=== PATIENT | male | born 1950 | race African-American/Black ===

== ENCOUNTER 2020-12-09 18:13 | Emergency (ER) | payer OTHER ==
[~2020-12-09] VITALS: Ht 167.6 cm; Wt 86.2 kg
[2020-12-09 20:52] LABS: ABSOLUTE NEUTROPHILS 5.3 thou/uL (1.4-8.2); HEMOGLOBIN 14.9 gm/dL (14.0-18.0); MCH 29.2 pg (26.0-34.0); RDW 13.4 % (10.5-14.5)
[2020-12-09 20:54] LABS: BASOPHILS 0.8 % (0.0-2.0); EOSINOPHILS 1.1 % (0.0-3.0); HEMATOCRIT 43.6 % (42.0-52.0); LYMPHOCYTES 17.5 % (24.0-44.0); MCHC 34.1 g/dL (28.0-37.0); MCV 85.5 fL (80.0-100.0); MONOCYTES 11.5 % (1.0-8.0); PLATELET COUNT 158 thou/uL (150-400); POLYS 69.1 % (36.0-66.0); WBC 7.6 thou/uL (4.0-11.0)
[2020-12-09 21:01] LABS: ANION GAP 7 mmol/L (7-16); BUN 12 mg/dL (7-18); CALCIUM 8.9 mg/dL (8.5-10.1); CHLORIDE 107 mmol/L (98-107); CO2 29 mmol/L (21-32); CREATININE 1.2 mg/dL (0.7-1.3); GLUCOSE 105 mg/dL (74-106); POTASSIUM 4.4 mmol/L (3.5-5.1); SODIUM 143 mmol/L (136-145)
[2020-12-09 21:12] LABS: ALBUMIN 3.6 g/dL (3.4-5.0); LIPASE 160 U/L (73-393); SGOT 8 U/L (15-37); SGPT 18 U/L (30-65); TOTAL BILIRUBIN 1.3 mg/dL (0.2-1.0); TOTAL PROTEIN 7.1 g/dL (6.4-8.2); TROPONIN-I <0.06 ng/mL (<0.06)
[2020-12-10] MEDS ORDERED: ULTRAM 50MG TAB50 MG PO (01:39)
[2020-12-10] MEDS ORDERED: LIDODERM1 EACH TRANSDERM (01:39)
[2020-12-10] MEDS ORDERED: CYCLOBENZAPRINE5 MG PO (01:39)
[2020-12-10 01:55] VITALS: BP 160/96
--- NOTE | 2020-12-10 07:31 | EKG ---
[address] [address] ELECTROCARDIOGRAM REPORT Name: ROBERT BRYANT Room #: [facility] MARI[facility]UZ Sommers#: [id number] Admission: 12/09/20 Attend Phys: Discharge: 12/10/20 Date of : 46 Report #: [id number] [facility] ED Test Date: 2020-12-09 Test Time: 18:36:48 Pat Name: ROBERT BRYANT Department: Room: Gender: Manager Process Improvement: SOLOMON : 1950 Requested By: Roger Calderon Order Number: [id number] MD: Sathish Graf Measurements Intervals [place] Rate: 90 P: 27 VA: 160 QRS: 7 QRSD: 82 T: 53 QT: 348 QTc: 426 Interpretive Statements Sinus rhythm No previous ECG available for comparison Electronically Signed On 12-10-2020 7:31:06 CDT by Sathish Graf [email or web address] <ELECTRONICALLY SIGNED> By: Sathish Graf MD, [facility] 12/10/20 0731 1836 1836 Sathish Graf MD, FACC /EPI
== END 2020-12-10 01:55 | disposition home or self-care (01) ==
LOC: ER 18:13
PROVIDERS: Emergency Medicine
DX: M54.2 Cervicalgia (principal); R07.89 Other chest pain; R51.9 Headache, unspecified; I10 Essential (primary) hypertension; R74.8 Abnormal levels of other serum enzymes; K21.9 Gastro-esophageal reflux disease without esophagitis